=== PATIENT | male | born 1955 | race Caucasian/White ===

== ENCOUNTER → 2016-04-01 | Outpatient (CLI) | payer OTHER ==
--- NOTE | 2016-04-01 07:04 | XR ---
EXAMINATION TYPE: XR finger RT DATE OF EXAM: 04/01/2016 6:52 AM COMPARISON: NONE HISTORY: Right thumb pain TECHNIQUE: 3 views are submitted FINDINGS: There is narrowing the first carpal metacarpal joint in a pattern typical of osteoarthritis. No erosi ve changes. Mild narrowing the first MCP joint with hypertrophic changes. Finding also typical of ost eoarthritis. Osseous structures intact. IMPRESSION: 1. No definite acute fracture or dislocation if symptoms persist, follow-up study in 7 to 10 days wo uld be suggested. 2. Findings suggestive of osteoarthritis.
== END | disposition home or self-care (01) ==
LOC: RADXRMAIN 06:35
PROVIDERS: ATTEND Family Medicine
DX: M79.644 Pain in right finger(s) (principal)

== ENCOUNTER → 2016-10-08 | Outpatient (CLI) | payer OTHER ==
--- NOTE | 2016-10-13 08:54 | US ---
EXAMINATION TYPE: US extremity nonvasc complt RT DATE OF EXAM: 10/08/2016 EXAMINATION TYPE: US MSK right ankle, Achilles tendon. DATE OF EXAM: 10/08/2016 10:03 AM COMPARISON: None available CLINICAL HISTORY: 61-year-old male M76.61 ACHILLES TENDONITIS Additional history provided by the patient: Chronic right heel pain x years, no prior imaging or fatemeh tment; patient states just deals with the pain, pain is getting worse. TECHNIQUE: Multiple sonographic images of the right Achilles tendon. Findings: Bony irregularity with associated heel spur. There is no Achilles tendon tear. The Uma s tendon is intact with thickening of the lower third portion with increased vascularity near spur. There is mild hypoechogenicity in the region of the retrocalcaneal bursa with mild associated hyperem ia. IMPRESSION: Hypervascularity or inflammatory change at distal Achilles tendon insertion superior calc aneus where spurring is present without discrete tear identified.
== END | disposition home or self-care (01) ==
LOC: RADUSWWP 09:54
PROVIDERS: ATTEND Family Medicine
DX: M76.61 Achilles tendinitis, right leg (principal)

== ENCOUNTER → 2017-06-06 | Outpatient (CLI) | payer OTHER ==
--- NOTE | 2017-06-06 15:25 | XR ---
EXAMINATION TYPE: XR chest 2V DATE OF EXAM: 06/06/2017 COMPARISON: 01/08/2015 HISTORY: coughing x1 week. bilateral pneumonia and bronchitis. h/o open heart surgery 2004. TECHNIQUE: Frontal and lateral views of the chest are obtained. FINDINGS: There is no focal air space opacity, pleural effusion, or pneumothorax seen. Post CABG ch anges of the chest are noted The cardiac silhouette size is within normal limits. The osseous struc tures are intact. Approximately 1 cm nodular density seen overlying the cardiac silhouette without co rresponding density in the lateral image. Mild multilevel degenerative changes of the thoracic spine are noted. Mild right acromioclavicular arthropathy is noted. IMPRESSION: 1. No acute cardiopulmonary process. 2. Nodular density overlying the cardiac silhouette not visualized on the lateral image. Therefore th is could represent true pulmonary nodule or overlapping structures. Short-term repeat examination cou ld be performed or CT to exclude underlying pulmonary nodule.
== END | disposition home or self-care (01) ==
LOC: RADXRMAIN 14:28
PROVIDERS: ATTEND Family Medicine
DX: J20.8 Acute bronchitis due to other specified organisms (principal); J15.9 Unspecified bacterial pneumonia
CPT/HCPCS: 71046

== ENCOUNTER → 2017-06-15 | Outpatient (CLI) | payer OTHER ==
--- NOTE | 2017-06-15 15:40 | CT ---
EXAMINATION TYPE: CT chest wo con DATE OF EXAM: 06/15/2017 COMPARISON: NONE HISTORY: Cough and abnormal CXR. CT DLP: [address] of the chest was performed with lung and mediastinal window settings submitted. The la ck of contrast limits evaluation of the vascular, mediastinal and parenchymal structures including th e upper abdomen. LUNGS: The lungs are clear and free of infiltrate. No atelectasis. Large calcified granuloma left low er lobe measures 1.4 cm. No additional nodules identified. Small elongated density along the right mi nor fissure is nonspecific and measures 2 mm in short axis and 6 mm in length. The remainder of the l ungs are clear. No pleural effusion. No CT evidence of interstitial lung disease. MEDIASTINUM/CLAY: Calcified hilar lymph nodes on the left compatible with remote granulomatous disea se. Thoracic aorta is of normal caliber with limited evaluation given lack of contrast. The heart is not enlarged. No evidence for mediastinal mass. No lymph nodes greater than 1cm. UPPER ABDOMEN: No significant abnormality is seen. Calcified splenic granulomas. Cholecystectomy cli ps. OTHER: No significant other abnormality. IMPRESSION: 1. Remote granulomatous disease.
== END | disposition home or self-care (01) ==
LOC: RADCTMAIN 15:10
PROVIDERS: ATTEND Family Medicine
DX: R91.1 Solitary pulmonary nodule (principal)
CPT/HCPCS: 71250

== ENCOUNTER → 2017-07-25 | Outpatient (CLI) | payer OTHER ==
--- NOTE | 2017-07-25 11:57 | P.STRESS ---
- Stress Test Note Stress Test Results/Findings: Exam Performed: stress test Exam Date: 07/25/17 Reason for Exam: Physical Height: 5 ft 8 in Weight: 113.398 kg Protocol: Cam Stage: 2 Duration of Exercise: 7:00 Resting Heart Rate: 74 Resting Blood Pressure: 133/67 Maximum Achieved Heart Rate: 144 Maximum Achieved Blood Pressure: 179/68 85% PMHR: 136 100% PMHR: 160 METS: 8.5 Technologist Comment: Stress Test Results/Findings: This is a 62-year-old gentleman with history of smoking, hypertension and also hypercholesterolemia being evaluated for symptoms of shortness of breath. Baseline EKG showed sinus rhythm with normal ID interval and QRS duration. Blood pressure at rest is 133/67 with pulse rate of 74. EKG taken during and after the x-ray did not reveal any significant changes to suggest ischemia. He patient did not experience any chest pain. Final impression: #1. Negative stress test #2 patient did not express any chest pain #3 patient exercise capacity is moderate #4. No arrhythmias were noted.
--- NOTE | 2017-07-25 12:49 | ECHOF ---
Referral Reason:R07.89 Other chest pain MEASUREMENTS -------- HEIGHT: 172.7 cm WEIGHT: 113.4 kg BP: 130/67 RVIDd: 2.9 cm (< 3.3) IVSd: 1.3 cm (0.6 - 1.1) LVIDd: 5.0 cm (3.9 - 5.3) LVPWd: 1.2 cm (0.6 - 1.1) IVSs: 1.5 cm LVIDs: 3.4 cm LVPWs: 1.6 cm LAESV Index (A-L): 18.01 ml/m Ao Diam: 3.2 cm (2.0 - 3.7) AV Cusp: 1.6 cm (1.5 - 2.6) LA Diam: 3.1 cm (2.7 - 3.8) MV EXCURSION: 18.742 mm (> 18.000) MV EF SLOPE: 64 mm/s (70 - 150) EPSS: 0.7 cm MV E Jeremy: 0.73 m/s MV DecT: 230 ms MV A Jeremy: 0.64 m/s MV E/A Ratio: 1.14 RAP: 5.00 mmHg RVSP: 33.35 mmHg FINDINGS -------- Sinus rhythm. This was a technically difficult study with suboptimal views. The left ventricular size is normal. There is mild concentric left ventricular hypertrophy. Overa ll left ventricular systolic function is normal with, an EF between 55 - 60 %. History of CABG x2 i n 2004. The right ventricle is normal in size. Normal LA size by volume 22+/-6 ml/m2. The right atrium is normal in size. 3ml of Lumason was utilized for enhancement of images. Aortic valve is trileaflet and is mildly thickened. There is no evidence of aortic regurgitation. There is no evidence of aortic stenosis. The mitral valve leaflets are mildly thickened. There is trace mitral regurgitation. Trace tricuspid regurgitation present. There is borderline pulmonary hypertension. The right vent ricular systolic pressure, as measured by Doppler, is 33.35mmHg. The pulmonic valve was not well visualized. The aortic root size is normal. Normal inferior vena cava with normal inspiratory collapse consistent with estimated right atrial pre ssure of 5 mmHg. There is no pericardial effusion. CONCLUSIONS -------- 1. Sinus rhythm. 2. This was a technically difficult study with suboptimal views. 3. The left ventricular size is normal. 4. There is mild concentric left ventricular hypertrophy. 5. Overall left ventricular systolic function is normal with, an EF between 55 - 60 %. 6. History of CABG x2 in 2004. 7. The right ventricle is normal in size. 8. Normal LA size by volume 22+/-6 ml/m2. 9. 3ml of Lumason was utilized for enhancement of images. 10. Aortic valve is trileaflet and is mildly thickened. 11. The mitral valve leaflets are mildly thickened. 12. There is trace mitral regurgitation. 13. Trace tricuspid regurgitation present. 14. There is borderline pulmonary hypertension. 15. The right ventricular systolic pressure, as measured by Doppler, is 33.35mmHg. 16. The pulmonic valve was not well visualized. 17. The aortic root size is normal. 18. There is no pericardial effusion. PACKERHEAD MACHINE OPERATOR: Robert Acosta RDCS
--- NOTE | 2017-07-26 16:21 | EST ---
Stress Test Results/Findings: Exam Performed: stress test Exam Date: 07/25/17 Reason for Exam: Physical Height: 5 ft 8 in Weight: 113.398 kg Protocol: Cam Stage: 2 Duration of Exercise: 7:00 Resting Heart Rate: 74 Resting Blood Pressure: 133/67 Maximum Achieved Heart Rate: 144 Maximum Achieved Blood Pressure: 179/68 85% PMHR: 136 100% PMHR: 160 METS: 8.5 Technologist Comment: Stress Test Results/Findings: This is a 62-year-old gentleman with history of smoking, hypertension and also hypercholesterolemia being evaluated for symptoms of shortness of breath. Baseline EKG showed sinus rhythm with normal PA interval and QRS duration. Blood pressure at rest is 133/67 with pulse rate of 74. EKG taken during and after the x-ray did not reveal any significant changes to suggest ischemia. He patient did not experience any chest pain. Final impression: #1. Negative stress test #2 patient did not express any chest pain #3 patient exercise capacity is moderate #4. No arrhythmias were noted. PROSPER
== END | disposition home or self-care (01) ==
LOC: RADNMMAIN 10:21
PROVIDERS: ATTEND Family Medicine
DX: R07.89 Other chest pain (principal)
CPT/HCPCS: 93017; C8929; Q9950; 93306

== ENCOUNTER → 2018-09-27 | Outpatient (CLI) | payer OTHER ==
--- NOTE | 2018-09-27 09:22 | CT ---
EXAMINATION TYPE: CT lumbar spine wo con DATE OF EXAM: 09/27/2018 8:05 AM COMPARISON: None HISTORY: Lumbar radiculopathy CT DLP: 1183.20 mGycm Automated exposure control for dose reduction was used. Unenhanced CT of the lumbar spine was performed. Bone and soft tissue window settings are submitted as well as coronal and sagittal reconstructions. No acute fracture or subluxation. Mild dextroconvex curvature of the thoracolumbar spine. Prevertebral and paraspinal musculature appear symmetric. A few degenerative calcifications of the abdominal aorta. Visualized lung bases are clear. Anterior bridging osteophytes from L1-2 to L4-5. L1-L2: Normal disc space height. No disc herniation protrusion or central stenosis. No facet joint arthropathy. No evidence for foraminal encroachment. L2-L3: Normal disc space height. No disc herniation protrusion or central stenosis. No facet joint arthropathy. No evidence for foraminal encroachment. L3-L4: Disc space narrowing with diffuse disc bulge and endplate Schmorl's nodes, ligamenta flava hyp ertrophy and facet arthropathy causing mild spinal canal stenosis and moderate to severe right and mi ld left neural foraminal stenosis. L4-L5: Diffuse disc bulge and disc space narrowing, ligamentum flavum hypertrophy and facet arthropat hy. The facet arthropathy is greater on the right than has a few osteophytes directed medially into t he right lateral recess and neural foramen and causes abutment or impingement of the descending and e xiting nerves. There is also moderate left-sided neural foraminal stenosis. L5-S1: Diffuse disc bulge eccentric to the left with apparent focal disc protrusion/herniation in the left lateral recess causing abutment or impingement on the descending left S1 nerve. Moderate facet arthropathy and marginal osteophytes contribute to moderate right and severe left neural foraminal st enosis. IMPRESSION: Lumbar spondylosis at L3-S4 to L5-S1. Apparent focal disc protrusion/herniation in the left lateral r ecess at L5-S1 causing abutment or impingement of the descending left S1 nerve. There is also severe left neural foraminal stenosis with likely impingement of the exiting L5 nerve.
== END | disposition home or self-care (01) ==
LOC: RADCTMAIN 07:22
PROVIDERS: ATTEND Family Medicine
DX: M48.061 Spinal stenosis, lumbar region without neurogenic claudication (principal); M51.26 Other intervertebral disc displacement, lumbar region
CPT/HCPCS: 72131

== ENCOUNTER → 2020-06-12 | Outpatient (CLI) | payer MEDICAID | END | disposition home or self-care (01) | LOC: LABWHC1 09:19 | PROVIDERS: ATTEND Family Medicine | DX: D64.9 Anemia, unspecified (principal); R97.20 Elevated prostate specific antigen [PSA] | CPT/HCPCS: 36415; 84153 ==

== ENCOUNTER → 2021-07-15 | Outpatient (CLI) | payer MEDICARE ==
--- NOTE | 2021-07-15 15:28 | CT ---
EXAMINATION TYPE: CT chest w con DATE OF EXAM: 07/15/2021 COMPARISON: 06/15/2014 HISTORY: Chest pain CT DLP: 616.1 mGycm, Automated exposure control for dose reduction was used. CONTRAST: Performed injected with 100 mL of Isovue 300. TECHNIQUE: Axial images were obtained at 5 mm thick sections. Reconstructed images are reviewed on Drimki computer in the coronal plane. FINDINGS: Portion of the thyroid visualized is normal. There is a 0.7 cm slight increased density in the medial right apex. Series 4 image 10. There is a laminated calcification in the posterior left lung base. This may be subtly eccentric with in the density. Granuloma measuring 1.8 cm may be present. This previously measured 1.7 cm. Apparent stability from 2018 suggests a more benign process. No enlarged mediastinal or hilar adenopathy is evident. The ascending aorta diameter at the level o f the main pulmonary artery is 4.3 cm. The main pulmonary artery diameter at the bifurcation is 2.7 cm. Coronary artery calcification is present. Limited CT sections are obtained through the upper abdomen. Abdomen is essentially unremarkable. IMPRESSIONS: 1. There is a 1.8 cm nodule with internal calcification suggesting granuloma. 2. Small area of increased density within the medial right apex is nonspecific. Follow-up exam in 6 [facility] to reevaluate this area is recommended.
== END | disposition home or self-care (01) ==
LOC: RADCTMAIN 08:27
PROVIDERS: ATTEND Family Medicine
DX: R91.1 Solitary pulmonary nodule (principal); R07.89 Other chest pain
CPT/HCPCS: 71260; Q9967

== ENCOUNTER → 2022-01-15 | Outpatient (CLI) | payer MEDICARE ==
--- NOTE | 2022-01-15 12:00 | CT ---
EXAMINATION TYPE: CT chest w con DATE OF EXAM: 01/15/2022 COMPARISON: 07/15/2021 HISTORY: 66-year-old male R91.1, lung nodule. TECHNIQUE: Contiguous axial scanning of the chest after the administration of 70 mL of Isovue 300. C oronal/sagittal reconstructions performed. CT DLP: 836mGycm. Automatic exposure control utilized for a dose reduction. FINDINGS: Median sternotomy wires are present with postoperative changes. Heart normal size without pericardial effusion. Retained epicardial pacer lead. Minimal aortic valvul ar calcifications are demonstrated. 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 Conventional arch vessel branching anatomy. No thoracic lymphadenopathy by CT size criteria. Calcified left hilar lymph nodes compatible with bernarda or granulomatous disease. 1.6 cm nodule posterior left lower lobe shows dense central calcification, unchanged from prior. Find ings most compatible with a granuloma. Strandy atelectasis or scarring inferior lingula. 6 mm elongated nodule right midlung along the major fissure, likely intrafissural lymph node, unchang ed. Tiny groundglass area in medial right apex is less pronounced from 07/15/2021, likely some scarring. Mild biapical pleural-parenchymal scarring. Calcified granulomas within the spleen also compatible with prior granulomatous disease. Cholecystect benito clips. Bones: Moderate degenerative disc disease lower thoracic spine. Accentuated midthoracic kyphosis. IMPRESSION: 1. Unchanged calcified granuloma at the left base. Tiny focus of groundglass medial right apex is les s pronounced from 07/15/2021, probably some apical pleural parenchymal scarring. 2. 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
== END | disposition home or self-care (01) ==
LOC: RADCTMAIN 09:42
PROVIDERS: ATTEND Family Medicine
DX: I71.21 Aneurysm of the ascending aorta, without rupture (principal); J84.10 Pulmonary fibrosis, unspecified; R91.1 Solitary pulmonary nodule
CPT/HCPCS: 71260; Q9967

== ENCOUNTER → 2022-01-27 | Outpatient (CLI) | payer MEDICARE ==
--- NOTE | 2022-01-27 11:37 | CA ---
Exercise Stress Test Report Name: Wallace Lemus Exam Date: 01/27/2022 10:35 Exam Location: [place] Ht (in): 68 Wt (lb): 235 BSA: 2.19 Ordering Phys: Ronaldo Sneed DO Referring Phys: SNEED Technologist: Ronaldo Carson Age: 67 Gender: M : 1955 Procedure CPT: Indications: R07.89 Atypical Chest Pain ICD-10 Codes: Patient History: Chest pain and hx ascad Medications: Meds past 24 hrs: Pretest Chest Pain: STRESS TEST Cam Protocol Exercise Duration (min:sec): 07:[address] Depressions (mm): Angina Score: Pollard Score: Resting HR (bpm): 75 Peak HR (bpm): 136 Resting BP (mmHg): 153 / 81 Peak BP (mmHg): 214 / 69 MPHR: 155 Target HR: 132 % MPHR: 88 METS: 9.8 Total Dose: Peak Dose: Atropine: Double Product: 91857 BP Response: Stress Termination: Chest pain and heart rate acheived Stress Symptoms: Chest pain #10 Stress Summary: ECG ANALYSIS Resting ECG: Normal sinus rhythm normal axis normal intervals Stress ECG: Patient exercised on Cam protocol for 7 and half minutes complained of chest pressure on the right side of his chest with [address] segment depression in inferolateral leads CONCLUSIONS Average exercise tolerance Abnormal stress test by EKG criteria Patient had chest discomfort and treadmill And starting the patient on Imdur 30 mg daily and sublingual nitro glycerin when necessary basis Dr. Rashad Marx MD (Electronically Signed) Final Date: 27 January 2022 11:36
== END | disposition home or self-care (01) ==
LOC: RADNMMAIN 10:02
PROVIDERS: ATTEND Family Medicine
DX: R07.89 Other chest pain (principal); R94.31 Abnormal electrocardiogram [ECG] [EKG]
CPT/HCPCS: 93017